=== PATIENT | male | born 1940 | race Caucasian/White ===

== ENCOUNTER 2021-08-04 13:25 | Emergency (ER) | payer OTHER ==
[~2021-08-04] VITALS: Ht 172.7 cm; Wt 67.1 kg
[~2021-08-04 13:25] MED LIST: [UNRECOGNIZED DRUG - OTHER]
[2021-08-04] MEDS ORDERED: ZESTRIL10 M1 PO (13:39)
[2021-08-04] MEDS ORDERED: BUDESONIDE EC3 M1 PO (13:39)
[2021-08-04] MEDS ORDERED: SINGULAIR10 MG PO (18:12)
[2021-08-04] MEDS ORDERED: TUSNEL LIQUID178 ML PO (18:12)
== END 2021-08-04 18:19 | disposition home or self-care (01) ==
LOC: ER 13:25
DX: R05.9 Cough, unspecified (principal); Z20.822 Contact with and (suspected) exposure to COVID-19